=== PATIENT | female | born 1975 | race Caucasian/White ===

== ENCOUNTER 2017-05-28 07:19 | Outpatient (CLI) | payer OTHER ==
[~2017-05-28 07:19] MED LIST: CELEBREX100 MG PO; LUPRON DEP IM; PERCOGESIC 3251 EACH PO; ZOLOFT100 MG PO; [UNRECOGNIZED DRUG - OTHER] IM; [UNRECOGNIZED DRUG - OTHER] PO
== END 2017-05-28 12:24 | disposition home or self-care (01) ==
LOC: SONOGRAMA 07:19
DX: R10.84 Generalized abdominal pain (principal); E03.8 Other specified hypothyroidism; E04.0 Nontoxic diffuse goiter

== ENCOUNTER 2017-08-18 09:45 | Outpatient (CLI) | payer OTHER ==
[~2017-08-18] VITALS: Ht 160 cm; Wt 83.5 kg
[2017-08-18] MEDS ORDERED: ZANTAC300 MG PO (11:33)
== END 2017-08-18 10:00 | disposition home or self-care (01) ==
LOC: OFIC 805 09:45
DX: E04.8 Other specified nontoxic goiter (principal); J37.0 Chronic laryngitis; J31.0 Chronic rhinitis; R22.1 Localized swelling, mass and lump, neck

== ENCOUNTER 2017-09-08 10:08 | Outpatient (CLI) | payer OTHER ==
[~2017-09-08 10:08] MED LIST changes: +ZANTAC300 MG PO
== END 2017-09-08 10:14 | disposition home or self-care (01) ==
LOC: TOM 10:08
DX: E04.9 Nontoxic goiter, unspecified (principal); E04.1 Nontoxic single thyroid nodule; R13.10 Dysphagia, unspecified

== ENCOUNTER 2017-09-22 10:44 | Outpatient (CLI) | payer OTHER ==
[~2017-09-22] VITALS: Ht 152.4 cm; Wt 83.5 kg
== END 2017-09-22 11:00 | disposition home or self-care (01) ==
LOC: OFIC 805 10:44
DX: E04.8 Other specified nontoxic goiter (principal); J37.0 Chronic laryngitis; J31.0 Chronic rhinitis; R22.1 Localized swelling, mass and lump, neck; M25.511 Pain in right shoulder

== ENCOUNTER → 2017-10-04 | Outpatient (CLI) | payer OTHER | END | disposition home or self-care (01) | LOC: NUCLEAR 09:00 | DX: E05.00 Thyrotoxicosis with diffuse goiter without thyrotoxic crisis or storm (principal) | CPT/HCPCS: 78012; A9531 ==

== ENCOUNTER 2017-10-05 12:24 | Outpatient (CLI) | payer OTHER | END 2017-10-05 12:40 | disposition home or self-care (01) | LOC: NUCLEAR 12:24 | DX: E05.00 Thyrotoxicosis with diffuse goiter without thyrotoxic crisis or storm (principal) | CPT/HCPCS: 78013; A9512 ==

== ENCOUNTER 2017-11-17 11:13 | Outpatient (CLI) | payer OTHER ==
[~2017-11-17] VITALS: Ht 152.4 cm; Wt 83.5 kg
== END 2017-11-17 11:30 | disposition home or self-care (01) ==
LOC: OFIC 805 11:13
DX: J37.0 Chronic laryngitis (principal); J31.0 Chronic rhinitis; R22.1 Localized swelling, mass and lump, neck; M25.511 Pain in right shoulder

== ENCOUNTER 2017-12-01 10:31 | Outpatient (CLI) | payer OTHER ==
[~2017-12-01] VITALS: Ht 152.4 cm; Wt 83.5 kg
[2017-12-02] MEDS ORDERED: FLEXERIL PO (13:20)
[2017-12-02] MEDS ORDERED: CELEBREX200MG PO (13:20)
== END 2017-12-01 10:45 | disposition home or self-care (01) ==
LOC: OFIC 805 10:31
DX: J37.0 Chronic laryngitis (principal); J31.0 Chronic rhinitis; R22.1 Localized swelling, mass and lump, neck

== ENCOUNTER 2017-12-02 07:00 | Inpatient (IN) | payer OTHER ==
[~2017-12-02] VITALS: Ht 160 cm; Wt 86.2 kg
[2017-12-02] MEDS ORDERED: FLEXERIL PO (13:20)
[2017-12-02] MEDS ORDERED: CELEBREX200MG PO (13:20)
[2017-12-09] MEDS ORDERED: SYNTHROID50 MCG PO (08:06)
[2017-12-09] MEDS ORDERED: CALCITRIOL0.25 MCG PO (08:07)
[2017-12-09] MEDS ORDERED: PERCOCET 5-3251 EACH PO (08:09)
[2017-12-09] MEDS ORDERED: CALCIUM 500 +1 EAC2 PO (08:10)
== END 2017-12-09 16:44 | disposition home or self-care, planned readmission (81) | DRG 627 ==
LOC: O/R 12-07 05:47 → SURG 12-07 17:16 → SURG-SUITE 12-07 19:27
PROVIDERS: Otolaryngology
PROC: 0GTK0ZZ Resection of Thyroid Gland, Open Approach (ICD-10-PCS; principal; 2017-12-07 07:00)
DX: E05.20 Thyrotoxicosis with toxic multinodular goiter without thyrotoxic crisis or storm (principal); E83.51 Hypocalcemia; E20.8 Other hypoparathyroidism

== ENCOUNTER → 2017-12-13 10:03 | Outpatient (CLI) | payer OTHER ==
[~2017-12-13 10:03] MED LIST changes: +CALCITRIOL0.25 MCG PO; +CALCITRIOL0.5 MCG PO; +CALCIUM 500 +1 EAC2 PO; +CELEBREX200MG PO; +FLEXERIL PO; +PERCOCET 5-3251 EACH PO; +SYNTHROID100 MCG PO; +SYNTHROID50 MCG PO
== END | disposition home or self-care (01) ==
LOC: LAB 10:03
DX: E83.51 Hypocalcemia (principal); E20.8 Other hypoparathyroidism

== ENCOUNTER 2017-12-15 09:53 | Outpatient (CLI) | payer OTHER ==
[~2017-12-15 09:53] MED LIST changes: -CALCITRIOL0.5 MCG PO; -SYNTHROID100 MCG PO
[2017-12-15] MEDS ORDERED: SYNTHROID100 MCG PO (11:46)
[2017-12-15] MEDS ORDERED: CALCITRIOL0.5 MCG PO (11:47)
== END 2017-12-15 10:10 | disposition home or self-care (01) ==
LOC: OFIC 805 09:53
DX: E03.8 Other specified hypothyroidism (principal); E83.51 Hypocalcemia